=== PATIENT | male | born 1960 | race Caucasian/White ===

== ENCOUNTER 2016-11-15 14:38 | Emergency (ER) | payer OTHER ==
[~2016-11-15] VITALS: Ht 182.9 cm; Wt 111.5 kg
[2016-11-15 14:40] VITALS: Ht 182.9 cm; Wt 111.5 kg
--- NOTE | 2016-11-15 14:52 | EMERGENCY ROOM VISIT NOTE ---
History First contact with patient: 14:43 Chief Complaint: PUNCTURE WOUND Stated Complaint: LEFT FOOT PUNCTURE-WORK RELATED-COUMADIN PATIENT Nursing Triage Summary: Pt states at work a screw went up threw my left foot. "I'm a blood thinner patient." Tetanus needed. Pt takes blood pressure medication. DM so unsure how long screw was in his foot. Noticed 1 hour ago. Continues to bleed. Takes Xarelto and Metformin History of Present Illness The patient is a 56 year old male who presents to the Emergency Room via private vehicle accompanied by boss with complaints of "left foot Xarelto patient". The patient states that he punctured his left foot while at work earlier today around noontime. He states that he has diabetic neuropathy in his feet, and does not feel unwell, and a dry wall screw went through his boot into his foot. He states that he noticed bleeding, therefore prompting his visit here today. He does not think his tetanus is up-to-date. He notes minimal pain. He did take his blood pressure medication today. Review of Systems A complete 6-point Review of Systems was discussed with the patient, with pertinent positives and negatives listed in the History of Present Illness. All remaining Review of Systems questions can be considered negative unless otherwise specified. Past Medical/Surgical History Anticoagulated, hypertension, diabetes Family History No pertinent. Social History Smoking Status: Never Smoker Patient lives locally with family. Current/Historical Medications Scheduled Ciprofloxacin Hcl (Cipro), 1 TAB PO BID Digoxin (Digoxin), 0.25 MG PO QAM Diltiazem Hcl (Diltiazem Hcl), 60 MG PO BID Metformin Hcl (Glucophage), 1,000 MG PO BID Nebivolol Hcl (Bystolic), 5 MG PO QAM Rivaroxaban (Xarelto), 20 MG PO QPM Physical Exam Vital Signs Date Time Temp Pulse Resp B/P (MAP) Pulse Ox O2 Delivery O2 Flow Rate FiO2 11/15/16 17:05 36.6 89 20 174/113 96 11/15/16 17:04 89 20 174/113 96 11/15/16 14:40 36.6 79 18 195/140 96 Room Air Physical Exam VITAL SIGNS - Vital signs and nursing notes were reviewed. Hypertensive. GENERAL -56-year-old male appearing his stated age who is in no acute distress. Communicates well with provider and answers questions appropriately. SKIN - Without rashes. No petechial rashes. There is a small punctate 6 mm in diameter wound that tracks into the foot. This is on the plantar aspect just distal to the M TPs. There is active bleeding noted. EXTREMITIES - No clubbing or peripheral cyanosis. No pretibial edema present. He is neurovascularly intact in the left foot. Full range of motion noted. +5/ 5 strength noted in UE/LE bilaterally. Medical Decision & Procedures ER Provider Diagnostic Interpretation: LEFT FOOT MIN 3 VIEWS ROUTINE CLINICAL HISTORY: Left foot puncture wound. Active bleeding trauma COMPARISON: None. DISCUSSION: Generalized moderate degenerative change throughout. No acute bony abnormality. No radiopaque or metallic foreign body. Mild soft tissue edematous change. IMPRESSION: Degenerative change. Mild soft tissue edema. No acute bony abnormality. The above report was generated using voice recognition software. It may contain grammatical, syntax or spelling errors. Electronically signed by: Jack Seo M.D. 11/15/2016 3:20 PM Dictated Date/Time: 11/15/2016 3:19 PM Medications Administered Medications (Trade) Dose Ordered Sig/Luis Felipe Route Start Time Stop Time Status Last Admin Dose Admin Diphtheria/ Pertussis/Tetanus Vacc (Adacel Inj) 0.5 ml ONCE ONCE IM. 11/15/16 15:00 11/15/16 15:01 DC 11/15/16 15:07 0.5 ML Ciprofloxacin (Cipro Tab) 500 mg NOW STAT PO 11/15/16 16:18 11/15/16 16:19 DC 11/15/16 16:35 500 MG Cefazolin Sodium (Ancef 1000mg/55 ml D5W) 1,000 mg NOW STAT IV 11/15/16 16:18 11/15/16 16:19 DC 11/15/16 16:35 1,000 MG Medical Decision Patient was seen and evaluated as above. After obtaining a thorough history and physical examination radiograph was obtained, and the region was dressed with a pressure dressing. Results as above. No acute fracture. IV access initiated, and he was given 1 g of Ancef secondary to the dirtiness of the wound. He was also given 500 mg of ciprofloxacin. This is to help prevent infection secondary to the screw being through the patient's boot into his foot. He was hypertensive, and this was repeated and it was elevated, but he notes that he will follow up. Denies any chest pain, shortness of breath or any other symptoms with this. The region was cleaned with a Pulsavac system, with 1 L utilized of normal saline. The region was then cleansed, and 1 stitch was loosely placed. His tetanus is up-to-date. The patient still for outpatient management. Case was discussed with the attending physician. Patient was educated upon worrisome symptoms which to return, had questions about it hurt, and was discharged home in good condition. Management was outlined with the patient regarding following up with workman's comp. In evaluation treatment this patient following differential diagnoses were entertained: Fracture, puncture wound, among others. Impression Primary Impression: Puncture wound of foot Departure Information Dispostion Home / Self-Care Condition GOOD Prescriptions Ciprofloxacin Hcl (CIPRO) 500 Mg Tab 1 TAB PO BID for 7 Days, #14 TAB Prov: Remington Valenzuela PA-C 11/15/16 Referrals Rigoberto Dalton M.D. (PCP) Patient Instructions My [facility] Additional Instructions Discharge Instructions: You have received 1 sutures on your foot. These sutures are NOT dissolvable and WILL need to be removed by a health care provider in 12 days. You can return to the Emergency Department or contact your Primary Care Provider to have the sutures removed. Proper wound care is essential for adequate wound healing and infection prevention. You can shower and clean the wound with soap and water. Do not scour over the wound, pat dry with a towel. Do not submerse the wound (i.e. bathe or dish wash) until the sutures have been removed. You can use an antibiotic ointment with a dressing over the wound for the next 3-4 days. After this time you may leave the wound dry and open to the air. If crust develops over the wound you can use a Q-tip to apply a 1:1 peroxide:water solution to clean the wound. Look for signs of infection of the wound including: increased pain, swelling, foul discharge, streaking, or increased temperature. If any of these are noticed you should return to the Emergency Department for further assessment and treatment. Please stay off of the foot as much as possible. Please change the dressing once daily. Please take the ciprofloxacin twice daily as prescribed. This is to help prevent infection. As with any laceration you may have received nerve damage to the surrounding tissues. This damage may or may not be permanent. You should keep the area covered with sunscreen for the first 6 months to 1 year when at risk for exposure to help minimize scarring. You can also use scar reducing creams or Vitamin E oil to help minimize scarring. For pain control, you can use the following [id number] medicines (if >12 yo): - Regular strength (325mg/tab) Tylenol (acetaminophen) 2 tabs every 4-6 hours as needed. Do not exceed 12 tablets in a 24 hour period. Avoid taking more than 3 grams (3000 mg) of Tylenol per day. This includes any other sources of acetaminophen you may take on a regular basis. - Regular strength (200 mg/tab) Advil (ibuprofen) 1-2 tabs every 4-6 hours as needed. Do not exceed a dose of 3200 mg per day. Please follow-up with Workmen's Compensation regarding your injury. I recommended no work until Sunday. Return to the emergency department if your symptoms worsen despite treatment course outlined above.
[2016-11-15] MEDS ORDERED: DIPHTHERIA/TETANUS/PERTUSSIS 0.5 ML SYR/VIAL IM. ONE (15:00)
[2016-11-15] MEDS ORDERED: RIVA1TAB4 PO (15:11)
[2016-11-15] MEDS ORDERED: DILT60TA PO (15:11)
[2016-11-15] MEDS ORDERED: LNX25 PO (15:11)
[2016-11-15] MEDS ORDERED: BYS/5 PO (15:11)
[2016-11-15] MEDS ORDERED: METF-384 PO (15:11)
--- NOTE | 2016-11-15 15:21 | DIAGNOSTIC IMAGING REPORT ---
LEFT FOOT MIN 3 VIEWS ROUTINE CLINICAL HISTORY: Left foot puncture wound. Active bleeding trauma COMPARISON: None. DISCUSSION: Generalized moderate degenerative change throughout. No acute bony abnormality. No radiopaque or metallic foreign body. Mild soft tissue edematous change. IMPRESSION: Degenerative change. Mild soft tissue edema. No acute bony abnormality. The above report was generated using voice recognition software. It may contain grammatical, syntax or spelling errors. Electronically signed by: Jack Seo M.D. 11/15/2016 3:20 PM Dictated Date/Time: 11/15/2016 3:19 PM
[2016-11-15] MEDS ORDERED: CEFAZOLIN SOD 1000MG/55 ML D5W IV STA (16:18)
[2016-11-15] MEDS ORDERED: CIPROFLOXACIN 500 MG TAB PO STA (16:18)
[2016-11-15] MEDS ORDERED: CIPR-255 PO (16:19)
[2016-11-15 17:05] VITALS: BP 174/113; PULSE 89; TEMP 36.6; O2SAT 96
== END 2016-11-15 17:06 | disposition home or self-care (01) ==
LOC: C.EDB 14:41 → C.EDD 17:06
DX: S91.332A Puncture wound without foreign body, left foot, initial encounter (principal); W45.8XXA Other foreign body or object entering through skin, initial encounter; Y92.89 Other specified places as the place of occurrence of the external cause; Y99.0 Civilian activity done for income or pay; Z23 Encounter for immunization; I10 Essential (primary) hypertension; E11.9 Type 2 diabetes mellitus without complications; Z79.01 Long term (current) use of anticoagulants; Z79.84 Long term (current) use of oral hypoglycemic drugs; Z79.899 Other long term (current) drug therapy